=== PATIENT | female | born 1985 | race Caucasian/White ===

== ENCOUNTER 2017-04-11 01:32 | Emergency (ER) | payer OTHER ==
[~2017-04-11] VITALS: Ht 162.6 cm; Wt 91.6 kg
--- NOTE | 2017-04-11 01:59 | NUR ---
DR DURAND AT BEDSIDE FOR MSE
--- NOTE | 2017-04-11 02:08 | NUR ---
Patient discharged to home in stable conditon. Written and verbal after care instructions given. Patient verbalizes understanding of instructions.
== END 2017-04-11 02:09 | disposition home or self-care (01) ==
LOC: ER 01:37
DX: M79.89 Other specified soft tissue disorders (principal); T63.301A Toxic effect of unspecified spider venom, accidental (unintentional), initial encounter; F41.9 Anxiety disorder, unspecified; F10.20 Alcohol dependence, uncomplicated; F17.200 Nicotine dependence, unspecified, uncomplicated; Y92.89 Other specified places as the place of occurrence of the external cause
CPT/HCPCS: A4663

== ENCOUNTER 2018-01-20 20:39 | Emergency (ER) | payer OTHER ==
[~2018-01-20] VITALS: Ht 162.6 cm; Wt 79.8 kg
--- NOTE | 2018-01-20 20:59 | NUR ---
PT AMBULATED TO BATHROOM W/ STEADY GAIT. URINE SAMPLE PROVIDED AND SENT TO LAB.
--- NOTE | 2018-01-20 21:04 | NUR ---
PT PRESENTS TO ED W/ C/O RUQ ABD PAIN, W/ ABNORMAL VAGINAL BLEEDING X2 MONTHS. PT STATES SHE HAS HX OF OVARIAN CYSTS. DENIES N/V OR DIARRHEA. NO PAIN ON URINATION. DENIES SOB OR CP. FRIEND AT PT BEDSIDE. PT STATES SHE HAD PAP SMEAR 1 YEAR AGO, AND THAT IT WAS NORMAL.
--- NOTE | 2018-01-20 21:10 | NUR ---
DR. ZARAGOZA AT BEDSIDE FOR MSE.
[2018-01-20] MEDS ORDERED: ACETAMINOPHEN ES 500 MG TABLET PO ONE (21:15)
[2018-01-20] MEDS ORDERED: IBUPROFEN 800 MG TABLET PO ONE (21:15)
[2018-01-20 21:16] LABS: *BILIRUBIN,URIN NEGATIVE (NEGATIVE); *BLOOD, URINE NEGATIVE (NEGATIVE); *CLARITY,URINE CLEAR (CLEAR); *COLOR,URINE YELLOW (YELLOW); *KETONES,URINE TRACE (NEGATIVE); *PROTEIN,URINE TRACE (NEGATIVE); LEUKOCYTE ESTERASE ,URINE NEGATIVE (NEGATIVE); NITRITE, URINE NEGATIVE (NEGATIVE); UGLUCOSE NEGATIVE (NEGATIVE)
--- NOTE | 2018-01-20 21:18 | NUR ---
LAB AT PT BEDSIDE FOR BLOOD DRAW.
[2018-01-20 21:19] LABS: *URINE HCG, QUAL NEGATIVE (NEGATIVE)
[2018-01-20 21:22] LABS: BACTERIA,URINE FEW /HPF (NONE SEEN); SQUAMOUS EPITHELIAL CELL,UR FEW /HPF (NONE SEEN)
[2018-01-20] MEDS ORDERED: IBUPROFEN 800 MG TABLET ONE (21:24)
[2018-01-20] MEDS ORDERED: ACETAMINOPHEN ES 500 MG TABLET ONE (21:24)
--- NOTE | 2018-01-20 21:24 | NUR ---
XRAY AT BEDSIDE.
[2018-01-20 21:38] LABS: CREATININE 0.8 mg/dL (0.6-1.3); POTASSIUM 4.1 mmol/L (3.5-5.1)
[2018-01-20 21:42] LABS: BASOPHILS # (AUTO) 0.2 K/uL (0.0-8.0); BASOPHILS % (AUTO) 1.3 % (0.0-2.0); EOSINOPHILS # (AUTO) 0.2 K/uL (0.0-0.7); EOSINOPHILS % (AUTO) 1.5 % (0.0-7.0); HEMATOCRIT 38.4 % (31.2-41.9); HEMOGLOBIN 12.9 g/dL (10.9-14.3); LYMPHOCYTES % (AUTO) 13.8 % (20.5-51.5); MEAN CORPUSCULAR HEMOGLOBIN 28.8 uug (24.7-32.8); MEAN CORPUSCULAR HGB CONC 34 g/dL (32.3-35.6); MEAN CORPUSCULAR VOLUME 85.9 fL (75.5-95.3); MONOCYTES # (AUTO) 0.9 K/uL (2.0-10.0); MONOCYTES % (AUTO) 6.1 % (0.0-11.0); NEUTROPHILS % (AUTO) 77.3 % (38.5-71.5); PLATELET COUNT (AUTO) 313 K/uL (179-408); RED BLOOD CELL COUNT(AUTO) 4.47 MIL/uL (3.63-4.92); WHITE BLOOD COUNT (AUTO) 14.2 K/uL (3.8-11.8)
[2018-01-20 21:50] LABS: BILIRUBIN,DIRECT 0.1 mg/dL (0.0-0.2); BILIRUBIN,TOTAL 0.2 mg/dL (0.2-1.0); TOTAL PROTEIN, SERUM 7.3 g/dL (6.4-8.2)
--- NOTE | 2018-01-20 22:29 | NUR ---
PT RESTING IN A POSITION OF COMFORT IN BED, WATCHING TV. NO DISTRESS NOTED.
--- NOTE | 2018-01-20 22:52 | NUR ---
PT OBSERVED EATING SNACKS. PT'S FRIEND AT BEDSIDE.
--- NOTE | 2018-01-20 23:00 | NUR ---
DR. ZARAGOZA AT PT BEDSIDE
--- NOTE | 2018-01-20 23:16 | NUR ---
Patient discharged to home in stable conditon. Written and verbal after care instructions given. Patient verbalizes understanding of instructions. Pt denies any pain at this time. Pt left ER and walks in steady gait.
[2018-01-20 23:17] VITALS: BP 97/55
[2018-01-23 01:07] LABS: *GC NAA Negative (Negative); *TRIC.VAG. NAA Negative (Negative)
== END 2018-01-20 23:18 | disposition home or self-care (01) ==
LOC: ER 20:44
DX: R10.11 Right upper quadrant pain (principal); R05 Cough; F17.210 Nicotine dependence, cigarettes, uncomplicated
CPT/HCPCS: 36415; 71045; 80048; 80076; 81001; 83690; 84703; 85025; 85379; 87086; 87491; 99285; A4663; A9150